=== PATIENT | male | born 1990 ===

== ENCOUNTER 2021-01-26 23:45 | Emergency (ER) | payer OTHER, SELFPAY ==
[2021-01-27 00:52] VITALS: BP 121/74; PULSE 73; RESP 18; TEMP 36.6; O2SAT 98; BMI 25.1
[2021-01-27 01:02] LABS: Glucose Urine UA NEG (NEG); Leukocyte Esterase Urine TRACE (NEG); Nitrite Urine NEG (NEG); UACC Culture Trigger YES; Urine Blood NEG (NEG); Urine Ketones NEG (NEG); Urine Protein NEG (NEG-TRACE)
[2021-01-27 01:05] LABS: Appearance Urine CLEAR; Color Urine YELLOW
[2021-01-27 01:21] LABS: Bacteria Urine TRACE /LPF; Mucus Urine TRACE /LPF; Squamous Epithelial Cell Urine TRACE /LPF; UACC CULT YES
--- NOTE | 2021-01-27 02:57 | ED.GENADULT ---
HPI - General Adult General Chief complaint: General Medical Stated complaint: Burning in crotch since yesterday Time Seen by Provider: 01/27/21 02:57 History of Present Illness HPI narrative: 30 years old with a history of having Unprotected sex with a partner. Presents today with having yellow pus discharge from his penis. Patient complaining of pain , burning on urination. Positive discharge. Does not use a condom. Related Data Previous Rx's Medication Instructions Recorded doxycycline hyclate 100 mg PO BID 7 Days #14 tab 01/27/21 Allergies Allergy/AdvReac Type Severity Reaction Status Date / Time No Known Allergies Allergy Unverified 04/17/20 19:33 [No Known Allergies*] Review of Systems Review of Systems: Positive pain on urination. Positive penile discharge PMFSH Past Medical History Attestation statement: The following information was validated with the patient. Medical History No known health problems Social History Social History Advance Directives: No Advance Directives Information Provided: No Physical Exam Vital Signs: Vital Signs: Last Vital Signs Temp 97.8 F 01/27/21 00:52 Pulse 73 01/27/21 00:52 Resp 18 01/27/21 00:52 BP 121/74 01/27/21 00:52 Pulse Ox 98 01/27/21 00:52 Body Mass Index 25.1 Appearance: Alert. Oriented X3. No acute distress. Eyes: Pupils equal, round and reactive to light. ENT: Pharynx normal. Neck: Normal inspection. Neck supple. No lymph nodes noted. No crepitus CVS: Normal heart rate and rhythm. Pulses normal. Normal S1 and S2 Respiratory: No respiratory distress. Breath sounds normal. No Wheezing. No rales Abdomen: Soft and nontender. No rigidity. No distention. good BS x4 Skin: Skin warm and dry. Normal skin color. Normal skin turgor. Extremities: No lower extremity edema. Neurovascular intact to all extremities. No Lacerations. No Rash Neuro: Oriented X 3. No motor deficit. No sensory deficit. Moving all extermities. No slurred speech positive discharge from the tip of the penis. Medical Decision Making MDM Narrative Medical decision making narrative: Patient history consistent with having STD. Will start patient on Rocephin and doxycycline. Close follow-up on outpatient basis. Patient told partner needs to be tested. Lab Data Labs: Lab Results 01/27/21 Range/Units 00:53 Urine Color YELLOW Urine Appearance CLEAR Urine pH 6.0 (5.0-8.0) Ur Specific [place] 1.020 (1.005-1.025) Urine Protein NEG (NEG-TRACE) MG/DL Urine Glucose (UA) NEG (NEG) MG/DL Urine Ketones NEG (NEG) MG/DL Urine Blood NEG (NEG) Urine Nitrite NEG (NEG) Ur Leukocyte Esterase TRACE H (NEG) Urine RBC 1-4 (0) /HPF Urine WBC 10-14 H (0-4) /HPF Ur Squamous Epith Cells TRACE /LPF Urine Bacteria TRACE /LPF Urine Mucus TRACE /LPF Discharge Plan Discharge Clinical Impression: STD (male) Patient Disposition: Home, Self-Care Instructions: Sexually Transmitted Diseases (ED), Safe Sex Practices (ED) Prescriptions: New doxycycline hyclate 100 mg tablet 100 mg PO BID 7 Days Qty: 14 RF: 0 Referrals: Physician,Unknown [Primary Care Provider] - 2 days
[2021-01-27] MEDS: cefTRIAXone sodium 500 MG, Lidocaine HCl 1 % MPF 1 ML IM (03:38)
[2021-01-27 03:44] VITALS: BP 124/68; PULSE 72; RESP 20; O2SAT 100
[2021-01-27 04:56] LABS: CT PCR NOT DETECTED (Not Detect.); NG PCR DETECTED (Not Detect.)
== END 2021-01-27 03:57 | disposition home or self-care (01) ==
PROVIDERS: Emergency Provider Emergency Medicine Emergency Medical Services
DX: A64 Unspecified sexually transmitted disease (principal)
CPT/HCPCS: 81001; 87086; 87491; 87591; 96372; 99284; J0696

== ENCOUNTER 2021-05-20 05:07 | Emergency (ER) | payer OTHER, SELFPAY ==
[2021-05-20 05:12] VITALS: BP 140/71; PULSE 100; RESP 16; TEMP 36.6; O2SAT 97; BMI 25.1
--- NOTE | 2021-05-20 05:34 | ED_ITS ---
HPI - Male Genitourinary General Chief complaint: Urogenital-Male Stated complaint: Urogenital male Time Seen by Provider: 05/20/21 05:09 Source: patient Mode of arrival: ambulatory Limitations: no limitations History of Present Illness HPI Narrative: Patient comes to the emergency room complaining of dysuria. Patient states he was sexually active with his partner 2 days ago. Patient has been treated for gonorrhea in the past. Patient has the same symptoms, including dysuria, penile discharge. Patient denies fever chills Related Data Previous Rx's Medication Instructions Recorded doxycycline hyclate 100 mg tablet 100 mg PO BID 7 Days #14 tab 01/27/21 doxycycline hyclate 100 mg tablet 100 mg PO BID #13 tab 05/20/21 nitrofurantoin 100 mg PO BID #13 cap 05/20/21 monohydrate/macrocrystals 100 mg capsule (Macrobid) Allergies Allergy/AdvReac Type Severity Reaction Status Date / Time No Known Allergies Allergy Verified 05/20/21 05:12 [No Known Allergies*] Review of Systems Review of Systems: Constitutional : No Weight loss, No Fever, No Chills, No Night Sweats, No Fatigue, No Malaise ENT/Mouth : No Hearing loss, No Ear Pain, No Nasal Congestion, No Sinus Pain, No Hoarseness, No sore throat, No Rhinorrhea, No Swallowing Difficulty Eyes: No Eye Pain, No Swelling, No Redness, No Foreign Body, No Discharge, No Vision Changes Cardiovascular : No Chest Pain, No SOB, No Dyspnea on Exertion, No Orthopnea, No Edema, No Palpitations Respiratory : No Cough, No Sputum, No Wheezing, No Smoke Exposure, No Dyspnea Gastrointestinal : No Nausea, No Vomiting, No Diarrhea, No Constipation, No abdominal Pain, No Hematochezia, No Melena Genitourinary : Complaining of dysuria, No Hematuria, complaining of penile discharge, No Urinary Incontinence, No Urgency, No Flank Pain, No Urinary Flow Changes, No Hesitancy Musculoskeletal : No joint pain, No Myalgias, No Joint Swelling Skin : No Skin Lesions, No rash Neuro : No Weakness, No Numbness, No Paresthesias, No Loss of Consciousness, No Dizziness, No Headache Psych : No Anxiety/Panic, No Depression, No SI/HI/AH/VH, No Social Issues, Heme/Lymph: No Bruising, No Bleeding,No Lymphadenopathy Endocrine : No Polyuria, No Polydipsia, No Temperature Intolerance [facility] Past Medical History Medical History (Updated 05/20/21 @ 05:55 by Judy Verde MD) Gonorrhea No known health problems Social History Social History Advance Directives: No Advance Directives Information Provided: Yes Physical Exam Vital Signs: Vital Signs: Last Vital Signs Temp 98 F 05/20/21 05:12 Pulse 100 05/20/21 05:12 Resp 16 05/20/21 05:12 BP 140/71 H 05/20/21 05:12 Pulse Ox 97 05/20/21 05:12 Body Mass Index 25.1 Const: Other: Appearance: Alert. Oriented X3. No acute distress. Eyes: Pupils equal, round and reactive to light. ENT: Pharynx normal. Neck: Normal inspection. Neck supple. No lymph nodes noted. No crepitus CVS: Normal heart rate and rhythm. Pulses normal. Normal S1 and S2 Respiratory: No respiratory distress. Breath sounds normal. No Wheezing. No rales Abdomen: Soft and nontender. No rigidity. No distention. Skin: Skin warm and dry. Normal skin color. Normal skin turgor. Extremities: No lower extremity edema. No lower extremity edema. No Lac erations. No Rash Neuro: Oriented X 3. No motor deficit. No sensory deficit. Moving all extermities. No slurred speech. Course Course Course Narrative: Patient has tested positive for gonorrhea in the past. Patient was given 1 dose of IM ceftriaxone and p.o. doxycycline. Patient also has a mild UTI, being treated with nitrofurantoin [facility] - Male Genitourinary Lab Data Labs: Lab Results 05/20/21 Range/Units 05:32 Urine Color YELLOW Urine Appearance HAZY Urine pH 6.0 (5.0-8.0) Ur Specific [place] >= 1.030 H (1.005-1.025) Urine Protein TRACE (NEG-TRACE) MG/DL Urine Glucose (UA) NEG (NEG) MG/DL Urine Ketones 5 (NEG) MG/DL Urine Blood TRACE (NEG) Urine Nitrite NEG (NEG) Ur Leukocyte Esterase 1+ H (NEG) Urine RBC 1-4 (0) /HPF Urine WBC 50-75 H (0-4) /HPF Ur Squamous Epith Cells 1+ /LPF Urine Bacteria 2+ /LPF Discharge Plan Discharge Clinical Impression: Urinary tract infection, Exposure to STD Patient Disposition: Home, Self-Care Instructions: Sexually Transmitted Diseases (ED), Safe Sex Practices (ED), Urinary Tract Infection in Men (ED) Prescriptions: New doxycycline hyclate 100 mg tablet 100 mg PO BID Qty: 13 RF: 0 nitrofurantoin monohyd/m-cryst [Macrobid] 100 mg capsule 100 mg PO BID Qty: 13 RF: 0 No Action doxycycline hyclate 100 mg tablet 100 mg PO BID 7 Days Qty: 14 RF: 0
[2021-05-20 05:39] LABS: Appearance Urine HAZY; Color Urine YELLOW; Glucose Urine UA NEG (NEG); Leukocyte Esterase Urine 1+ (NEG); Nitrite Urine NEG (NEG); Specific Gravity - Urine >= 1.030 (1.005-1.025); UACC Culture Trigger YES; Urine Blood TRACE (NEG); Urine Ketones 5 MG/DL (NEG); Urine Protein TRACE MG/DL (NEG-TRACE)
[2021-05-20 05:49] LABS: Squamous Epithelial Cell Urine 1+ /LPF; WBC Urine 50-75 /HPF (0-4)
[2021-05-20 05:50] LABS: Bacteria Urine 2+ /LPF
[2021-05-20] MEDS: cefTRIAXone sodium 500 MG, Lidocaine HCl 1 % MPF 1 ML IM (06:14)
[2021-05-20] MEDS: Nitrofurantoin Monohyd/M-Cryst 100 MG CAPSULE PO (06:15)
[2021-05-20 11:14] LABS: CT PCR DETECTED (Not Detect.); NG PCR DETECTED (Not Detect.)
== END 2021-05-20 06:35 | disposition home or self-care (01) ==
PROVIDERS: Emergency Provider Emergency Medicine
DX: N39.0 Urinary tract infection, site not specified (principal); A54.9 Gonococcal infection, unspecified; A74.9 Chlamydial infection, unspecified
CPT/HCPCS: 81001; 87086; 87491; 87591; 96372; 99283; 99284; J0696

== ENCOUNTER 2022-04-08 09:51 | Emergency (ER) | payer OTHER, SELFPAY ==
[2022-04-08 09:58] VITALS: BP 157/88; PULSE 82; RESP 16; TEMP 37.1; O2SAT 100; BMI 30.2
[2022-04-08] MEDS: cefTRIAXone sodium 500 MG, Lidocaine HCl 1 % MPF 1 ML IM (11:31)
--- NOTE | 2022-04-08 12:15 | ED_ITS ---
HPI - Male Genitourinary General Chief complaint: General Medical Stated complaint: std check Time Seen by Provider: 04/08/22 11:06 Source: patient Mode of arrival: ambulatory Limitations: no limitations History of Present Illness MD Complaint: possible STD exposure Onset (ago): week(s) (2-3 weeks ago) Duration: constant Location: penis Severity: mild Quality: burning Relieving factors: none Exacerbating factors: urination Context: known STD exposure ( Patient reports he had intercourse with a female approximately 2-3 weeks ago that told him she had chlamydia) Associated symptoms: Reports denies other symptoms and dysuria Related Data Sexually active: Yes Previous Rx's Medication Instructions Recorded doxycycline hyclate 100 mg tablet 100 mg PO BID 7 days #14 tabs 01/27/21 doxycycline hyclate 100 mg tablet 100 mg PO BID #13 tabs 05/20/21 nitrofurantoin 100 mg PO BID #13 caps 05/20/21 monohydrate/macrocrystals 100 mg capsule (Macrobid) doxycycline monohydrate 100 mg 100 mg PO BID 10 days #20 tabs 04/08/22 tablet Allergies Allergy/AdvReac Type Severity Reaction Status Date / Time No Known Allergies Allergy Verified 05/20/21 05:12 [No Known Allergies*] Review of Systems Review of Systems: Constitutional : No Weight loss, No Fever, No Chills, No Night Sweats, No Fatigue, NoMalaise ENT/Mouth: No ear pain, No sore throat, No Difficulty swallowing Cardiovascular : No Chest Pain, No SOB, No Dyspnea on Exertion, No Orthopnea, NoEdema, No Palpitations Respiratory : No Cough, No Sputum, No Wheezing, No Dyspnea Gastrointestinal : No Nausea, No Vomiting, No Diarrhea, No abdominal Pain, No Hematochezia, No Melena Genitourinary : No testicular pain, No irregular bleeding, + Dysuria, No Urinary Frequency, No Hematuria,No Urinary Incontinence, No Urgency, No Flank Pain Musculoskeletal : No joint pain, No Myalgias, No Joint Swelling Skin : No Skin Lesions, No rash Neuro : No Weakness, No Numbness, No Paresthesias, No Loss of Consciousness, NoDizziness, No Headache Psych : No Social Issues, Heme/Lymph: No Bruising, No Bleeding,No Lymphadenopathy Endocrine : No Polyuria, No Polydipsia, No Temperature Intolerance reports he was exposed to chlamydia 2-3 weeks ago. Yes all other systems are reviewed and are negative [facility] Past Medical History Attestation statement: The following information was validated with the patient. Source: old records reviewed and nursing notes reviewed Medical History Gonorrhea No known health problems Social History Social History Advance Directives: No Advance Directives Information Provided: No Physical Exam Vital Signs: Vital Signs: Last Vital Signs Temp 98.8 F 04/08/22 09:58 Pulse 82 04/08/22 09:58 Resp 16 04/08/22 09:58 BP 157/88 H 04/08/22 09:58 Pulse Ox 100 04/08/22 09:58 O2 Del Method 04/08/22 09:58 BMI result Body Mass Index 30.2 vital signs have been reviewed as normal and appeared to be correct. Blood pressure 157/88 Heart rate normal. Respiration rate normal. Temperature normal. Oxygen saturation normal. Appearance: Alert. Oriented X3. No acute distress. Head: Normal external exam. Normocephalic. Atraumatic. Eyes: PERRLA. EOMI. Conjunctiva and sclera normal. Eyelids normal. ENT: Pharynx normal. Uvula midline. Moist mucous membranes. Neck: Normal inspection. Neck supple. FROM. No adenopathy. No meningeal signs. CVS: Normal heart rate and rhythm. Heart sound normal. No murmurs noted. Pulses normal throughout. Respiratory: No respiratory distress. Painless inspiration. Breath sounds normal. No wheezes/rales/rhonchi noted. Chest nontender. No accessory muscle usage noted or decreased air movement noted. Abdomen: Soft and nontender. Bowel sounds normal in all 4 quadrants. No distention noted. No organomegaly noted. No visible injury noted. Back: No CVA tenderness. Full range of motion noted. Skin: Skin warm and dry. Normal skin color. Normal skin turgor. No rashes/lesions/lacerations noted. Extremities: Extremities exhibit normal range of motion. Extremities nontender. Neuro: Oriented X 3. No motor deficit. No sensory deficit. Reflexes normal. Course Course Course Narrative: pt + for chlamydia I let him know this I just called him back and explained to him that he was positive and he needs to take the doxycycline twice a day for 10 days. He was negative for gonorrhea despite me treating him before he left. Syphilis is still pending he will need to be called about these results if they are positive otherwise instructed to return if any new or worsening symptoms and to follow-up with PCP/ [facility]. Patient understands agrees with this plan. MDM - Male Genitourinary Medical Records Attestation: I reviewed the patient's medical records. Lab Data Attestation: I reviewed the patient's lab results. Labs: Lab Results 04/08/22 Range/Units 10:10 Chlam trachomat DNA PCR DETECTED A (Not Detect.) N.gonorrhoeae DNA (PCR) NOT DETECTED (Not Detect.) Discharge Plan Discharge Clinical Impression: Encounter for assessment of STD exposure, Chlamydia infection Patient Disposition: Home, Self-Care Instructions: Sexually Transmitted Diseases (ED), Safe Sex Practices (ED) Additional Instructions: You have pending lab results if any are positive you will be contacted within 5-7 days. If you have the patient portal you may see results in there before we call you. Return if any new or worsening symptoms. Do not have any sexual intercourse for at least 10 days into you finish treatment and do not have any intercourse with any partners you previously had intercourse with due to you may reinfect yourself. Return if any new or worsening symptoms follow up with primary care provider. Prescriptions: New doxycycline monohydrate 100 mg tablet 100 mg PO BID 10 Days Qty: 20 0RF No Action doxycycline hyclate 100 mg tablet 100 mg PO BID 7 Days Qty: 14 0RF doxycycline hyclate 100 mg tablet 100 mg PO BID Qty: 13 0RF nitrofurantoin monohyd/m-cryst [Macrobid] 100 mg capsule 100 mg PO BID Qty: 13 0RF Rx Instructions: must administer with a meal/food Referrals: Physician,None [Primary Care Provider] - 2 days (your pcp) Stand Alone Forms: Work/School Release Print Language: Hebrew
[2022-04-08 12:30] LABS: CT PCR DETECTED (Not Detect.); NG PCR NOT DETECTED (Not Detect.)
[2022-04-09 06:17] LABS: Syphilis Screen Nonreactive (Nonreactive)
== END 2022-04-08 12:56 | disposition home or self-care (01) ==
PROVIDERS: Physician Assistant Medical; Emergency Provider Emergency Medicine Emergency Medical Services
DX: A56.8 Sexually transmitted chlamydial infection of other sites (principal); Z20.2 Contact with and (suspected) exposure to infections with a predominantly sexual mode of transmission; Z79.899 Other long term (current) drug therapy
CPT/HCPCS: 36415; 86780; 87491; 87591; 96372; 99283; 99284; J0696

== ENCOUNTER 2022-05-26 11:51 | Emergency (ER) | payer OTHER, SELFPAY ==
[2022-05-26 13:04] VITALS: BP 132/84; PULSE 66; RESP 16; TEMP 36.3; O2SAT 100; BMI 26.6
[2022-05-26 16:43] LABS: CT PCR NOT DETECTED (Not Detect.); NG PCR NOT DETECTED (Not Detect.)
== END 2022-05-26 19:36 | disposition left against medical advice (07) ==
PROVIDERS: Emergency Provider Emergency Medicine
DX: Z20.2 Contact with and (suspected) exposure to infections with a predominantly sexual mode of transmission (principal); Z79.899 Other long term (current) drug therapy
CPT/HCPCS: 87491; 87591; 99282; 99283

== ENCOUNTER 2022-05-27 09:57 | Emergency (ER) | payer OTHER, SELFPAY ==
[2022-05-27 10:10] VITALS: BP 137/80; PULSE 72; RESP 16; TEMP 36.9; O2SAT 98; BMI 26.6
--- NOTE | 2022-05-27 10:55 | ED.MALEGU ---
HPI - Male Genitourinary General Chief complaint: Urogenital-Male Stated complaint: STD test Time Seen by Provider: 05/27/22 10:15 Source: patient Mode of arrival: ambulatory History of Present Illness HPI Narrative: 31-year-old male with a past medical history STI, presenting to the ED requesting STI check. Reports he noted penile lesion, pruritus and mild erythema 2 days ago. Also reports dysuria. Patient came to ED yesterday however LWT'd. Reports 1 sexual partner. Denies abdominal pain, flank pain, nausea, vomiting, fever, scrotal pain/swelling, hematuria, penile discharge MD Complaint: dysuria and possible STD exposure Onset (ago): day(s) Related Data Previous Rx's Medication Instructions Recorded doxycycline hyclate 100 mg tablet 100 mg PO BID 7 days #14 tabs 01/27/21 doxycycline hyclate 100 mg tablet 100 mg PO BID #13 tabs 05/20/21 nitrofurantoin 100 mg PO BID #13 caps 05/20/21 monohydrate/macrocrystals 100 mg capsule (Macrobid) doxycycline monohydrate 100 mg 100 mg PO BID 10 days #20 tabs 04/08/22 tablet cefuroxime axetil 250 mg tablet 250 mg PO BID 7 days #14 tabs 05/27/22 clotrimazole 1 % topical cream 1 appl topical BID 2 weeks #30 05/27/22 grams Allergies Allergy/AdvReac Type Severity Reaction Status Date / Time No Known Allergies Allergy Verified 05/20/21 05:12 [No Known Allergies*] Review of Systems Review of Systems: Constitutional: No Fever, No Chills, No Fatigue, No Malaise ENT/Mouth: No Ear Pain, No Nasal Congestion, No sore throat, No Rhinorrhea, No Swallowing Difficulty Eyes: No Eye Pain, No Swelling, No Redness Cardiovascular: No Chest Pain, No SOB, No Edema, No Palpitations Respiratory: No Cough, No Sputum, No Dyspnea Gastrointestinal: No Nausea, No Vomiting, No Diarrhea, No Constipation, No Abdominal pain Genitourinary: + Dysuria, No Urinary Frequency, No Hematuria, No Urinary Incontinence/retention, No Urgency, No Flank Pain, No Urinary Flow Changes, No Hesitancy Musculoskeletal: No joint pain, No Myalgias, No Joint Swelling Skin: + Skin Lesions, No rash Neuro: No Weakness, No Dizziness, No Headache Yes all other systems are reviewed and are negative Constitutional: Constitutional: Reports as per [facility] Past Medical History Attestation statement: The following information was validated with the patient. Medical History Gonorrhea No known health problems Social History Social History Advance Directives: No Physical Exam Vital Signs: Vital Signs: Last Vital Signs Temp 98.5 F 05/27/22 10:10 Pulse 72 05/27/22 10:10 Resp 16 05/27/22 10:10 BP 137/80 05/27/22 10:10 Pulse Ox 98 05/27/22 10:10 O2 Del Method 05/27/22 10:10 BMI result Body Mass Index 26.6 Const: General: cooperative, healthy appearing and no acute distress Orientation/consciousness: patient oriented x3 Limitations: no limitations HEENT: Head: Yes normal to inspection and Yes atraumatic Ears: hearing grossly normal bilaterally General nose exam: Normal external nose present Face and sinus: Yes normal facial exam Eyes: General: appearance normal, both eyes and all related structures EOM: EOMs intact bilaterally Neck: Neck: Yes normal visual inspection and Yes no meningeal signs Resp: Effort & Inspection: normal respiratory effort and no respiratory distress Cardio: Rate: regular rate Heart sounds: S1 normal heart sound present and S2 normal heart sound present GI: Inspection: Yes normal to inspection Palpation (GI): Soft to palpation, nontender, no guarding and not rigid : Other: +dry scaling rash noted to glans with mild erythema. No ulceration, no chancre, no drainage General: Yes no CVA tenderness Male General Exam: No Genital lesions present Penis: uncircumcised, erythematous and No Genital lesions present Meatus: meatus normal Scrotum: scrotum normal Back/Spine/Pelvis: Back: no CVA tenderness Skin: Rashes: no rashes Wounds: no wounds Neuro: General: patient oriented x3, tone normal and no meningeal signs Gait exam (Neuro): Normal gait present Extrem: General: Yes normal to inspection Course Course Course Narrative: -UA infected. Results discussed with patient including worrisome signs and symptoms and strict return precautions, and when to return to the emergency department. They verbalized understanding and feel safe for discharge at this time. MDM - Male Genitourinary MDM Narrative Medical decision making narrative: 31-year-old male with a past medical history STI, presenting to the ED requesting STI check. Reports he noted penile lesion, pruritus and mild erythema 2 days ago. On exam vital signs stable, NAD, nontoxic appearing, abdomen soft/nontender, no CVA tenderness, dry scaling rash with mild erythema noted to colon's. No appreciable lesions/ulcerations. No drainage. Concern for balanitis vs STI vs UTI. Low suspicion for appendicitis/diverticulitis or renal stone/pyelo Patient had CT/NG testing yesterday which was negative Plan: Herpes culture, UA, [facility] f/u Differential Diagnosis Differential diagnosis: Likely urinary tract infection Medical Records Attestation: I reviewed the patient's medical records. Lab Data Attestation: I reviewed the patient's lab results. Labs: Lab Results 05/27/22 Range/Units 11:02 Urine Color Dark Yellow Urine Appearance Clear Urine pH 5.5 (5.0-9.0) Ur Specific [place] >= 1.030 H (1.005-1.025) Urine Protein Trace (Neg-Trace) mg/dL Urine Glucose (UA) Negative (Negative) mg/dL Urine Ketones 80 (Negative) mg/dL Urine Blood Negative (Negative) Urine Nitrite Negative (Negative) Ur Leukocyte Esterase Small (1+) H (Negative) Urine RBC 0-2 (0-2) /HPF Urine WBC 6-10 H (0-5) /HPF Ur Squamous Epith Cells 0-2 (0-2) /HPF Urine Bacteria None Seen (None Seen) Hyaline Casts 3-5 (0-2) /LPF Discharge Plan Discharge Clinical Impression: Balanitis, Urinary tract infection Patient Disposition: Home, Self-Care Instructions: Balanitis (ED) Additional Instructions: you were negative for gonorrhea and chlamydia You likely have balanitis, suspect a yeast/candidal infection, apply topical clotrimazole as prescribed Additionally you have a urinary tract infection, Ceftin is an antibiotic please take as prescribed We recommend to have close follow-up with [facility] for further STI testing. Please avoid any sexual contact until you know the results of your cultures and her symptoms are completely resolved. We did perform a herpes culture, this will take 48-72 hours to result, we will call you with positive results only If symptoms persist or worsen you develop abdominal pain, fever, vomiting return to the ED Prescriptions: New clotrimazole 1 % cream 1 appl topical BID 14 Days Qty: 30 0RF cefuroxime axetil 250 mg tablet 250 mg PO BID 7 Days Qty: 14 0RF No Action doxycycline hyclate 100 mg tablet 100 mg PO BID 7 Days Qty: 14 0RF doxycycline hyclate 100 mg tablet 100 mg PO BID Qty: 13 0RF nitrofurantoin monohyd/m-cryst [Macrobid] 100 mg capsule 100 mg PO BID Qty: 13 0RF Rx Instructions: must administer with a meal/food doxycycline monohydrate 100 mg tablet 100 mg PO BID 10 Days Qty: 20 0RF Referrals: Physician,None [Primary Care Provider] -
[2022-05-27 11:19] LABS: Appearance Urine Clear; Color Urine Dark Yellow; Glucose Urine UA Negative (Negative); Leukocyte Esterase Urine Small (1+) (Negative); Nitrite Urine Negative (Negative); PH 5.5 (5.0-9.0); Specific Gravity - Urine >= 1.030 (1.005-1.025); UMIC TRIGGER UACC YES; Urine Blood Negative (Negative); Urine Ketones 80 mg/dL (Negative); Urine Protein Trace mg/dL (Neg-Trace)
[2022-05-27 11:28] LABS: Bacteria Urine None Seen (None Seen); RBC Urine 0-2 /HPF (0-2); Squamous Epithelial Cell Urine 0-2 /HPF (0-2); UACC Culture Trigger YES
== END 2022-05-27 11:51 | disposition home or self-care (01) ==
PROVIDERS: Physician Assistant; Emergency Provider Emergency Medicine
DX: N48.1 Balanitis (principal); N39.0 Urinary tract infection, site not specified; Z79.899 Other long term (current) drug therapy
CPT/HCPCS: 81001; 87086; 87255; 99283

== ENCOUNTER 2023-04-01 11:27 | Emergency (ER) | payer OTHER, SELFPAY ==
[2023-04-01 11:41] VITALS: BP 135/81; PULSE 90; RESP 18; TEMP 36.7; O2SAT 99; BMI 25.8
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
[2023-04-01 11:58] LABS: Appearance Urine Clear; Color Urine Yellow; Glucose Urine UA Negative (Negative); Leukocyte Esterase Urine Small (1+) (Negative); Nitrite Urine Negative (Negative); PH 5.5 (5.0-9.0); UMIC TRIGGER UACC YES; Urine Blood Negative (Negative); Urine Ketones Negative (Negative); Urine Protein Negative (Neg-Trace)
[2023-04-01 12:00] LABS: Bacteria Urine None Seen (None Seen); Hyaline Casts Urine 0-2 /LPF (0-2); RBC Urine 0-2 /HPF (0-2); Squamous Epithelial Cell Urine 0-2 /HPF (0-2); UACC Culture Trigger YES
[2023-04-01] MEDS: cefTRIAXone sodium 500 MG, Lidocaine HCl 1 % MPF 1 ML IM (12:35)
[2023-04-01] MEDS: Doxycycline Monohydrate 100 MG CAPSULE PO (12:35)
[2023-04-01 13:31] LABS: CT PCR DETECTED (Not Detect.); NG PCR DETECTED (Not Detect.)
== END 2023-04-01 12:42 | disposition home or self-care (01) ==
PROVIDERS: Emergency Provider Emergency Medicine
DX: A64 Unspecified sexually transmitted disease (principal); R36.9 Urethral discharge, unspecified; Z79.899 Other long term (current) drug therapy
CPT/HCPCS: 0353U; 81001; 87086; 96372; 99282; 99284; J0696

== ENCOUNTER 2023-09-01 23:07 | Emergency (ER) | payer SELFPAY ==
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
--- NOTE | ~2023-09-01 | XR_ITS ---
EXAMINATION: XR WRIST, RIGHT XR HAND, RIGHT CLINICAL INFORMATION: Pain, swelling, trauma, fall. COMPARISON: None available. TECHNIQUE: 3 views of the right hand and 4 views of the right wrist. FINDINGS: Evaluation of the fingers is limited due to partial flexion. However, accounting for this limitation, no discrete fracture or subluxation are seen. No unexpected radiopaque foreign bodies. Mild diffuse nonspecific soft tissue swelling is seen. XR/XR hand wrist RT IMPRESSION: No significant radiographic abnormality with the caveat that evaluation of the middle and distal phalanges is limited due to partial flexion.
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
[2023-09-01 23:15] VITALS: BP 123/69; BP 142/96; PULSE 74; PULSE 78; RESP 16; TEMP 36.8; O2SAT 95; O2SAT 97; BMI 27.8
[2023-09-02] MEDS: Acetaminophen 325 MG TABLET 975 MG PO (00:11)
[2023-09-02] MEDS: Ibuprofen 600 MG TABLET PO (00:11)
== END 2023-09-02 02:10 ==
PROVIDERS: Emergency Provider Student in an Organized Health Care Education/Training Program
DX: S63.501A Unspecified sprain of right wrist, initial encounter (principal); R07.81 Pleurodynia; M25.531 Pain in right wrist; Y33.XXXA Other specified events, undetermined intent, initial encounter; Y93.9 Activity, unspecified; Y92.9 Unspecified place or not applicable; Y99.8 Other external cause status
CPT/HCPCS: 71111; 73110; 73130; 99283; 99284